=== PATIENT | female | born 1995 ===

== ENCOUNTER → 2020-10-14 14:11 | Outpatient (BNVA) | payer OTHER, SELFPAY | PROVIDERS: Visit Provider Advanced Practice Midwife | DX: Z39.2 Encounter for routine postpartum follow-up (principal); F31.9 Bipolar disorder, unspecified; F25.9 Schizoaffective disorder, unspecified | CPT/HCPCS: 99212 ==

== ENCOUNTER → 2020-11-12 09:13 | Outpatient (BNVA) | payer OTHER, SELFPAY | PROVIDERS: PCP Physician Assistant; Visit Provider Obstetrics & Gynecology | DX: Z76.89 Persons encountering health services in other specified circumstances (principal) ==

== ENCOUNTER → 2020-11-23 09:27 | Outpatient (BNVA) | payer OTHER, SELFPAY | PROVIDERS: PCP Physician Assistant; Visit Provider Obstetrics & Gynecology | DX: Z76.89 Persons encountering health services in other specified circumstances (principal) ==

== ENCOUNTER → 2021-03-02 15:13 | Outpatient (BNVA) | payer OTHER, SELFPAY | PROVIDERS: PCP Physician Assistant; Visit Provider Advanced Practice Midwife ==

== ENCOUNTER → 2022-11-16 15:10 | Outpatient (BNVA) | payer OTHER, SELFPAY | PROVIDERS: PCP Internal Medicine; Visit Provider Advanced Practice Midwife | DX: O09.30 Supervision of pregnancy with insufficient antenatal care, unspecified trimester (principal); N92.6 Irregular menstruation, unspecified; O99.340 Other mental disorders complicating pregnancy, unspecified trimester; F25.9 Schizoaffective disorder, unspecified; F31.9 Bipolar disorder, unspecified; Z3A.00 Weeks of gestation of pregnancy not specified | CPT/HCPCS: 99212 ==

== ENCOUNTER 2022-11-16 17:20 | Outpatient (REF) | payer OTHER, SELFPAY ==
[2022-11-16 17:37] LABS: MANUAL DIFF FLAG NO
[2022-11-16 17:54] LABS: Basophils Percent Auto 0.2 % (0-2); Eosinophils Percent Auto 0.3 % (0-4); Hematocrit 35.8 % (37.0-47.0); Imm Gran Abs Auto 0.03 X10*3/uL (0.00-0.03); Imm Gran Pct Auto 0.3 % (0.0-0.4); Lymphocytes Absolute Auto 2.4 X10*3/uL (1.2-4.9); Lymphocytes Percent Auto 22.8 % (20-40); Mean Corpuscular HGB Conc 33.5 g/dl (31.0-35.0); Mean Corpuscular Hemoglobin 33.1 pg (27.0-33.0); Mean Corpuscular Volume 98.6 fL (80.0-98.0); Mean Platelet Volume 9.8 fL (9.4-12.3); Monocytes Absolute Auto 0.6 X10*3/uL (0.1-1.2); Monocytes Percent Auto 5.9 % (2-11); Neutrophils Absolute Auto 7.4 x10*3/uL (2.0-8.3); Neutrophils Percent Auto 70.5 % (45-73); Platelet Count 230 X10*3/uL (160-400); Red Blood Count 3.63 X10*6/uL (4.20-5.50); Red Cell Distribution Width 12.8 % (11.0-16.0); White Blood Count 10.5 X10*3/uL (4.8-10.8)
[2022-11-16 18:35] LABS: Alanine Aminotransferase 9 U/L (0-31); Albumin Level 3.8 g/dL (3.5-5.0); Alkaline Phosphatase 56 U/L (39-117); Anion Gap 12 (12-20); Aspartate Amino Transferase 15 U/L (5-31); Bilirubin Total 0.4 mg/dL (0.0-1.0); Blood Urea Nitrogen 6 mg/dL (9-16); Calcium 8.8 mg/dL (8.4-10.2); Carbon Dioxide 23 mmol/L (22-29); Chloride 103 mmol/L (96-108); Estimated Glomerular Filt Rate > 60; Glucose Random 88 mg/dL (60-115); Potassium 3.3 mmol/L (3.3-5.1); Sodium 135 mmol/L (135-145); TSH reflex Free T4 0.87 uIU/mL (0.32-4.0); Total Protein 6.7 g/dL (6.5-8.0); Vitamin D 25-OH Total 17.8 ng/mL (>30)
== END 2022-11-16 17:21 | disposition home or self-care (01) ==
LOC: HO.LAB 17:20
PROVIDERS: Visit Provider Nurse Practitioner Family
DX: Z00.00 Encounter for general adult medical examination without abnormal findings (principal)
CPT/HCPCS: 36415; 80053; 82306; 84443; 85025

== ENCOUNTER 2022-11-17 14:06 | Outpatient (REF) | payer OTHER, SELFPAY ==
--- NOTE | ~2022-11-17 | US_ITS ---
EXAMINATION: ULTRASOUND OB LIMITED CLINICAL INFORMATION: For dating. COMPARISON: Ultrasound OB 04/10/2020 TECHNIQUE: Routine transabdominal Limited imaging of pelvis is performed. FINDINGS: There is a single fetus in breech presentation and posterior placenta grade 2. heart rate is 152 bpm. On biometry, Biparietal diameter measures 5.937 corresponding 24 2 weeks, Head circumference measures 23.43 cm corresponding to 25 weeks 4 days, Abdominal circumference measures 20.21 cm corresponding to 24 weeks 6 days, Femoral length measures 4.44 cm corresponding to clinically described, occipital frontal diameter measures 8.6 cm corresponding 26 weeks and 5 days, The composite ultrasound gestational age is 24 weeks and 6 days and LINDSAY of 03/03/2023. The estimated weight is 1 pounds and 10 ounces US/US OB limited IMPRESSION: Single live intrauterine fetus in breech presentation. Ultrasound gestational age is 24 weeks 6 days and LINDSAY of 03/03/2023.
== END 2022-11-17 14:07 | disposition home or self-care (01) ==
LOC: HO.US 14:06
PROVIDERS: PCP Nurse Practitioner Family; Visit Provider Advanced Practice Midwife
DX: O32.1XX0 Maternal care for breech presentation, not applicable or unspecified (principal)
CPT/HCPCS: 76815

== ENCOUNTER → 2022-11-24 11:04 | Outpatient (BNVA) | payer OTHER, SELFPAY | PROVIDERS: PCP Nurse Practitioner Family; Visit Provider Advanced Practice Midwife | DX: O09.32 Supervision of pregnancy with insufficient antenatal care, second trimester (principal); O09.812 Supervision of pregnancy resulting from assisted reproductive technology, second trimester; Z3A.26 26 weeks gestation of pregnancy | CPT/HCPCS: 99212 ==

== ENCOUNTER 2023-11-17 15:25 | Outpatient (AMB) | payer OTHER, SELFPAY ==
--- NOTE | 2023-11-17 15:29 | A.OFFPC_ITS ---
Vital Signs 11/17/23 15:31 Height 5 ft 3 in BP 120/60 Blood Pressure Location Lt brachial Position Sitting Pulse 101 H Pulse Source Pulse Oximeter Pulse Oximetry (%) 96 Oxygen Delivery Method Room Air Oxygen Flow Rate 173 Intake Visit Reasons: Annual Exam Commercial Census Taker Required: No Accompanied by: Self / Same As Patient Allergies No Known Allergies Allergy (Verified 11/17/23 16:59) Medication List - Last Reconciled 11/19/23 by Que Garcia MD cholecalciferol (vitamin D3) 25 mcg PO DAILY PNV,calcium 11-xonw-lrjph acid 27 mg iron- 1 mg ( Vitamins Plus Low Iron) 1 tab PO DAILY ,calc no.[id number] 60 mg iron-1 mg 1 cap PO DAILY 90 days Tobacco use date assessed: 11/16/22 Dental Screening Dental Screen Date: 11/17/23 Did you have a dental visit in the last 12 months?: Yes Did you have a dental problem in the last 6 months where you did not have access to dental care?: No Was dental information given to patient?: Patient has dentist HPI Annual Exam HPI Details Patient comes in today for her annual physical examination States that she currently feels okay She is requesting for a test to be done here to confirm her Relates that she just found out she was a few months ago when she was far along in her and was never aware that she was then and thought that her frequent abdominal bloating symptoms and fatigue were from some other causes Her LMP was sometime in February 2023 so her EDC is roughly estimated to be sometime in the next month or two as she is not clear as to when the actual date of her last period was and she has never really followed up with OB-Probate Paralegal during her current States that she has been seen at [facility] and another place in [place] in the past but does not wish to go back to these places She also has a history of anxiety, bipolar disorder and schizophrenia but she is currently not following up with Psychiatry States that she was seen in the past at [facility] and [facility] in [place] but states that she has not been back to these places in a while now as she felt disrespected by some of the staff working there She presently denies any headaches or dizziness Denies any chest pains, no shortness of breath No nausea/vomiting, no abdominal pain No change in bowel habits noted Denies any acute urinary symptoms She also does not wish to get any blood tests done as she was reportedly told by another doctor in the past that she should not get any blood tests done while she is as it can be harmful to the baby [facility] Medical History (Updated 11/19/23 @ 04:51 by Que Garcia MD) Bipolar 1 disorder Vitamin D deficiency Schizo-affective schizophrenia Depressed Surgical History History of excision of pilonidal cyst (~2014) Family History Sister Migraine Maternal Grandmother Diabetes mellitus Thyroid disease Paternal Grandmother Breast cancer Paternal Grandfather Stomach cancer Social History Housing: Apartment Alcohol intake: current Alcohol intake frequency: holidays/special occasions only Patient Tobacco Use Status: Never used Tobacco e-Cigarette/Vaping Use: Currently Using service: No Current occupational status: employed Gender identity: Female Cognitive needs: No Hearing needs: No Vision needs: No Questionnaire PHQ-9 Over the last 2 weeks, how often have you been bothered by any of the following problems? 1. Little interest or pleasure in doing things: not at all 2. Feeling down, depressed, or hopeless: not at all 3. Trouble falling or staying asleep, or sleeping too much: not at all 4. Feeling tired or having little energy: not at all 5. Poor appetite or overeating: not at all 6. Feeling bad about yourself - or that you are a failure or have let yourself or your family down: not at all 7. Trouble concentrating on things, such as reading the newspaper or watching television: not at all 8. Moving or speaking so slowly that other people could have noticed. Or the opposite - being so fidgety or restless that you have been moving around a lot more than usual: not at all 9. Thoughts that you would be better off or of hurting yourself in some way: not at all Total score: 0 Depression Screening Interpretation: Negative Depression Screening Done: Yes 30880 - PHQ-9 Billing: Yes Source: Developed by Drs. Filippo Worrell, Hany Levy and colleagues, with an educational barbara from [employer]. Thrive Questionnaire Date Thrive assessed: 11/17/23 I am a: Patient What is your living situation today?: I have a steady place to live Within the past 12 months, did the food you bought not last and you didn't have the money to get more?: Never true Within the past 12 months, did you worry whether your food would run out before you got money to buy more?: Never true Do you have trouble paying for medicines?: No Do you have trouble getting transportation to medical appointments?: No Do you have trouble paying your heating and electricity bill?: No Do you have trouble taking care of your child, family member or friend?: No Do you have trouble with day-to-day activities such as bathing, preparing meals, shopping, managing finances, etc.?: No Are you currently unemployed and looking for a job?: No Are you interested in more education?: No Please select the resources that you would like help with: None Currently or been in a relationship where the following occur: no concerns reported AUDIT C Alcohol Use Questionnaire (AUDIT-C) 1. How often do you have a drink containing alcohol?: Never 3. How often do you have six or more drinks on one occasion?: Never Total Score: 0 Score Reviewed/Action Taken: Yes SARAH-7 AMB Questionnaire SARAH-7 Date SARAH - 7 assessed: 11/17/23 Feeling nervous, anxious, or on edge: 0 = Not at all Not being able to stop or control worryin = Not at all Worrying too much about different things: 0 = Not at all Trouble relaxin = Not at all Being so restless that it is hard to sit still: 0 = Not at all Becoming easily annoyed or irritable: 0 = Not at all Feeling afraid as if something awful might happen: 0 = Not at all Total SARAH-7 score (0-4 normal; 5-9 mild; 10-14 moderate; 15-21 severe): 0 Source: Developed by Drs. Filippo Worrell, Elza Valero, Hany Matthews and colleagues, with an educational barbara from [employer]. SARAH-7 Assessment Billing SARAH-7 Assessment Tool: SARAH-7 Assessment 38508 Review of Systems Const Denies chills, Denies fatigue, Denies fever(s), Denies headache(s) and Denies malaise Eyes Denies blurry vision, Denies change in vision, Denies irritation and Denies itchy eyes ENT Denies dysphagia, Denies dizziness, Denies otalgia, Denies headache(s), Denies nasal congestion, Denies neck pain, Denies odynophagia, Denies sinus pain and Denies sore throat Card Denies chest pain, Denies rapid heart rate, Denies irregular heart rhythm, Denies palpitations and Denies dyspnea Resp Denies chest congestion, Denies cough, Denies dyspnea and Denies wheezing GI Denies abdominal pain, Denies bloating, Denies constipation, Denies dysphagia, Denies heartburn, Denies diarrhea, Denies nausea, Denies odynophagia and Denies vomiting Denies hematuria, Denies urinary frequency, Denies dysuria, Denies urinary incontinence and Denies urinary urgency Musc Denies back pain, Denies arthralgias, Denies joint swelling, Denies muscle weakness and Denies neck pain Skin/Breast Denies breast pain, Denies breast mass, Denies change in pigmentation, Denies lesions, Denies rash and Denies unusual bruising Neuro Denies dizziness, Denies headache(s) and Denies paresthesias Psych Denies anxiety and Denies depression Endo Denies fatigue and Denies palpitations Johny/Lymph Denies easy bruising Aller/Immun Denies itchy eyes and Denies wheezing Physical exam (Primary Care) Vital Signs: Last Vital Signs Pulse 101 H 11/17/23 15:31 BP 120/60 11/17/23 15:31 Pulse Ox 96 11/17/23 15:31 Oxygen Delivery Method Room Air 11/17/23 15:31 Oxygen Flow Rate 173 11/17/23 15:31 Tobacco/Smoking Status: Tobacco use Status Tobacco use date assessed 11/16/22 11/17/23 15:35 Patient Tobacco Use Status Never used Tobacco 11/17/23 15:35 e-Cigarette/Vaping Use Currently Using 11/17/23 15:44 Depression Screening Interpretation: Negative Thrive Assessment: Date of Thrive Assessment Date Thrive assessed 11/17/23 11/17/23 15:44 Currently or been in a relationship where the following occur: no concerns reported Const General: no acute distress, alert and awake Orientation/consciousness: patient oriented x3 HENMT Head: Yes normocephalic and Yes atraumatic Ears: external ears normal, TM's normal bilaterally and EAC's normal General nose exam: No nasal discharge present Face and sinus: Yes normal facial exam and Yes sinuses nontender Teeth and gingiva: dentition normal Throat: Yes posterior oropharynx normal and Yes tonsils normal (no TP congestion) Eyes Eyelids: Yes eyelids normal Conjunctivae: conjunctivae normal Pupils: Equal, round and reactive pupils present EOM: EOMs intact bilaterally Neck Neck: Yes no lymphadenopathy and Yes supple Thyroid: Thyroid normal Resp Auscultation: clear to auscultation bilaterally, no rales and no wheezes Cardio Rate: regular rate Rhythm: regular rhythm Heart sounds: no murmurs GI Inspection: Yes distended (globular abdomen due to her ) Palpation (GI): Soft to palpation, nontender and No hepatosplenomegaly present Auscultation: normal bowel sounds General: Yes no CVA tenderness Back/Spine/Pelvis Back: no CVA tenderness Thoracic/Lumbar Spine: thoracic and lumbar spine normal to inspection Skin Lesions: no lesions Rashes: no rashes Neuro General: patient oriented x3, moves all extremities, no focal motor deficits and CN's II-XI intact bilaterally Cranial nerves: Yes Equal, round and reactive pupils present Cognition (Neuro): normal cognition Gait exam (Neuro): Normal gait present Extrem General: Yes no clubbing, cyanosis or edema Results AMB Test Urine AMB Test Urine Positive Last Edit by GENTRY Rust on 11/17/23 16:56 Results Reviewed Results Reviewed: Laboratory Last Values [facility] Clinic Positive 11/17/23 16:55 Assessment and Plan Assessment & Plan (1) Annual physical exam: Code(s): Z00.00 - Encounter for general adult medical examination without abnormal findings Plan: Patient declined to go for any routine labs, as she was reportedly told by another doctor in the past that she should not get any blood tests done while she is as it can be harmful to the baby (2) Positive test: Code(s): Z32.01 - Encounter for test, result positive Plan: Patient is advised that her test done here in the office today is positive Her LMP was reportedly sometime February 2023 so her calculated EDC would be sometime in November 2023 but patient is advised that this is a rough estimate and as she is unclear as to when her LMP actually is, this may be off by at a couple of months or so Is advised that the ultrasound would give us a much more definite idea of her baby's AOG once it is done - US ordered She declines going for any labs despite explaining to her that it would at least let us know if she is anemic or if she is having any problems with her blood sugar or other issues and despite reassuring her that routine labs should in no way affect her baby She also reportedly declined to be weighed today Will start her for now on vitamins with Folic acid and iron supplements QD Will also refer her to OB-Probate Paralegal for care (3) Bipolar 1 disorder: Code(s): F31.9 - Bipolar disorder, unspecified Plan: She has been seen by psychiatrist at [facility] in the past and has apparently been prescribed Risperidone, Haldol, Cogentin, Depakote and Tegretol at some point but she has reportedly stopped seeing psychiatry and has not been back to see them in at least a couple of years now and has not been on any medications for her psychiatric issues since as she feels that her psychiatrists just want to keep giving her more meds and keep her drugged up She has indicated during her past visit that she is under her own care and felt that she is well within her right not to see psychiatry as she does not trust them and declined offer to refer her to psychiatry or to mental health therapists Plan Follow up in 6 months Orders: Orders AMB HCG Urine Test 11/17/23 Z32.01 - Encounter for test, result positive US OB /maternal detail 11/17/23 Z32.01 - Encounter for test, result positive Referrals [facility] Referral Z32.01 - Encounter for test, result positive Medications: New ,calc no.89-[id number]-[id number] 60 mg iron-1 mg 1 cap PO DAILY 90 days 90 caps 1RF Coding Level of Care Code Est Pt Prev Care 18-39y(09827) Diagnoses Annual physical exam Z00.00 Positive test Z32.01 Bipolar 1 disorder F31.9 Additional Codes SARAH-7 Assessment Billing - SARAH-7 Assessment Tool: SARAH-7 Assessment 49083 ([id number])
[2023-11-17 15:31] VITALS: BP 120/60; PULSE 101; O2SAT 96
== END 2023-11-17 17:19 | disposition home or self-care (01) ==
PROVIDERS: Visit Provider Internal Medicine
DX: Z00.00 Encounter for general adult medical examination without abnormal findings (principal); Z32.01 Encounter for pregnancy test, result positive; F31.9 Bipolar disorder, unspecified; E55.9 Vitamin D deficiency, unspecified
CPT/HCPCS: 81025; 99395

== ENCOUNTER 2024-03-12 15:57 | Outpatient (AMB) | payer OTHER, SELFPAY ==
[2024-03-12 16:03] VITALS: BP 100/60; PULSE 112; O2SAT 97; BMI 32.2
--- NOTE | 2024-03-12 16:03 | AM.OFFWIN_ITS ---
Intake Vital Signs 03/12/24 16:03 Height 5 ft 3 in Weight 182 lb BMI 32.2 BP 100/60 Blood Pressure Location Rt brachial Position Sitting Pulse 112 H Pulse Source Pulse Oximeter Pulse Oximetry (%) 97 Oxygen Delivery Method Room Air Intake Visit Reasons: EP RT Eye discomfort Intake Note: Pt is here today for rt eye discomfort Patient Tobacco Use Status: Never used Tobacco Allergies No Known Allergies Allergy (Verified 03/12/24 16:03) HPI HPI Comments History of Present Illness Details 29 y/o female c/o bilateral eye discomfo rt after wearing her contacts for 3 day PFSH Medical History (Updated 03/12/24 @ 16:12 by ERIN Stroud) Bipolar 1 disorder Vitamin D deficiency Schizo-affective schizophrenia Depressed Surgical History History of excision of pilonidal cyst (~2014) Family History Sister Migraine Maternal Grandmother Diabetes mellitus Thyroid disease Paternal Grandmother Breast cancer Paternal Grandfather Stomach cancer Social History Housing: Apartment Alcohol intake: current Alcohol intake frequency: holidays/special occasions only Patient Tobacco Use Status: Never used Tobacco e-Cigarette/Vaping Use: Currently Using service: No Current occupational status: employed Gender identity: Female Cognitive needs: No Hearing needs: No Vision needs: No Review of Systems Const All systems reviewed & are unremarkable except as noted in HPI and below Physical Exam Vital Signs: Last Vital Signs Pulse 112 H 03/12/24 16:03 BP 100/60 03/12/24 16:03 Pulse Ox 97 03/12/24 16:03 Oxygen Delivery Method Room Air 03/12/24 16:03 BMI result Body Mass Index 32.2 Const General: in distress HEENT Head: Yes normal to inspection Ears: hearing grossly normal bilaterally General nose exam: Normal external nose present Eyes Conjunctivae: conjunctival abnormal (injection with discharge) right and left Assessment & Plan Assessment & Plan (1) Conjunctivitis: Code(s): H10.9 - Unspecified conjunctivitis Plan: The patient was still to discard all of her contact containers. Avoid contacts for 3-4 weeks Plan See plan Medications: New erythromycin 1 appl ophthalmic (eye) TID 3.5 grams 0RF Coding Level of Care Code Est Pt Level 3 (82593) Diagnoses Conjunctivitis H10.9
== END 2024-03-12 17:19 | disposition home or self-care (01) ==
PROVIDERS: PCP Internal Medicine; Visit Provider Physician Assistant Medical
DX: H10.9 Unspecified conjunctivitis (principal)
CPT/HCPCS: 99213

== ENCOUNTER 2024-05-22 12:30 | Outpatient (AMB) | payer OTHER, SELFPAY ==
[2024-05-22 12:32] VITALS: BP 90/58; PULSE 79; O2SAT 97; BMI 28.3
--- NOTE | 2024-05-22 12:32 | MHC.PC.OV ---
Vital Signs 05/22/24 12:32 Height 5 ft 3 in Weight 160 lb 0.1 oz BMI 28.3 BP 90/58 L Blood Pressure Location Lt brachial Position Sitting Pulse 79 Pulse Source Pulse Oximeter Pulse Oximetry (%) 97 Oxygen Delivery Method Room Air Intake Visit Reasons: follow up Intake Note: Patient is here to follow up. Reading Teacher Required: No Allergies No Known Allergies Allergy (Verified 05/22/24 12:55) Medication List - Last Reconciled 05/22/24 by Que Garcia MD cholecalciferol (vitamin D3) 25 mcg PO DAILY etonogestrel (Nexplanon) subdermal Tobacco use date assessed: 05/22/24 Dental Screening Dental Screen Date: 05/22/24 HPI follow up HPI Details Patient comes in today for her follow up visit States that she had her baby in January 2024 at [facility] - reports that her and delivery went well and that she had no issues at all during her States that she was seen by psychiatry at [facility] while she was and was taken off her Haldol at the time She is currently not taking anything for her bipolar disorder and is only taking vitamins that she gets from the store to help her stay healthy She is looking to start back on some Rx for her bipolar disorder but is requesting to be started on Risperdal instead as she supposedly recalls feeling better when she was on Risperdal in the past She is not sure / does not know supposedly why she was switched from Risperdal over to Haldol by her previous psychiatrist States that she feels okay otherwise She denies any headaches or dizziness Denies any chest pains, no SOB No nausea/vomiting, no abdominal pain No change in bowel habits noted She is also requesting for something to help her breasts get bigger - is hoping that we can just prescribe her some medications for that reason - have advised patient that in most cases, breast enlargements involve implants and surgical means rather than prescriptions as there are currently no approved or safe prescription options for breast enlargement/enhancement [facility] Medical History (Updated 05/22/24 @ 13:26 by Que Garcia MD) Overweight (BMI 25.0-29.9) Bipolar 1 disorder Vitamin D deficiency Schizo-affective schizophrenia Depressed Surgical History History of excision of pilonidal cyst (~2014) Family History Sister Migraine Maternal Grandmother Diabetes mellitus Thyroid disease Paternal Grandmother Breast cancer Paternal Grandfather Stomach cancer Social History Housing: Apartment Alcohol intake: current Alcohol intake frequency: holidays/special occasions only Patient Tobacco Use Status: Never used Tobacco e-Cigarette/Vaping Use: Currently Using service: No Current occupational status: employed Gender identity: Female Cognitive needs: No Hearing needs: No Vision needs: No Questionnaire PHQ-9 Over the last 2 weeks, how often have you been bothered by any of the following problems? 1. Little interest or pleasure in doing things: not at all 2. Feeling down, depressed, or hopeless: not at all 3. Trouble falling or staying asleep, or sleeping too much: not at all 4. Feeling tired or having little energy: not at all 5. Poor appetite or overeating: not at all 6. Feeling bad about yourself - or that you are a failure or have let yourself or your family down: not at all 7. Trouble concentrating on things, such as reading the newspaper or watching television: not at all 8. Moving or speaking so slowly that other people could have noticed. Or the opposite - being so fidgety or restless that you have been moving around a lot more than usual: not at all 9. Thoughts that you would be better off or of hurting yourself in some way: not at all Total score: 0 Depression Screening Interpretation: Negative Depression Screening Done: Yes 39070 - PHQ-9 Billing: Yes Source: Developed by Drs. Filippo Worrell, Elza Valero, Hany Matthews and colleagues, with an educational barbara from [employer]. Thrive Questionnaire Date Thrive assessed: 05/22/24 I am a: Patient What is your living situation today?: I have a steady place to live Within the past 12 months, did the food you bought not last and you didn't have the money to get more?: Never true Within the past 12 months, did you worry whether your food would run out before you got money to buy more?: Never true Do you have trouble paying for medicines?: No Do you have trouble getting transportation to medical appointments?: No Do you have trouble paying your heating and electricity bill?: No Do you have trouble taking care of your child, family member or friend?: No Do you have trouble with day-to-day activities such as bathing, preparing meals, shopping, managing finances, etc.?: No Are you currently unemployed and looking for a job?: No Are you interested in more education?: No Please select the resources that you would like help with: None Currently or been in a relationship where the following occur: No concerns reported THRIVE Score: 0 AUDIT C Alcohol Use Questionnaire (AUDIT-C) 1. How often do you have a drink containing alcohol?: Never 3. How often do you have six or more drinks on one occasion?: Never Total Score: 0 Score Reviewed/Action Taken: Yes SARAH-7 AMB Questionnaire SARAH-7 Date SARAH - 7 assessed: 05/22/24 Feeling nervous, anxious, or on edge: 0 = Not at all Not being able to stop or control worryin = Not at all Worrying too much about different things: 0 = Not at all Trouble relaxin = Not at all Being so restless that it is hard to sit still: 0 = Not at all Becoming easily annoyed or irritable: 0 = Not at all Feeling afraid as if something awful might happen: 0 = Not at all Total SARAH-7 score (0-4 normal; 5-9 mild; 10-14 moderate; 15-21 severe): 0 Source: Developed by Drs. Filippo Worrell, Elza Valero, Hany Matthews and colleagues, with an educational barbara from [employer]. SARAH-7 Assessment Billing SARAH-7 Assessment Tool: SARAH-7 Assessment 48307 Review of Systems Const Denies chills, Denies fatigue, Denies fever(s) and Denies headache(s) ENT Denies dysphagia, Denies dizziness, Denies otalgia, Denies headache(s), Denies neck pain, Denies odynophagia and Denies sore throat Card Denies chest pain, Denies palpitations and Denies dyspnea Resp Denies cough and Denies dyspnea GI Denies abdominal pain, Denies constipation, Denies dysphagia, Denies heartburn, Denies diarrhea, Denies nausea, Denies odynophagia and Denies vomiting Denies difficulty voiding, Denies nocturia, Denies dysuria and Denies urinary urgency Musc Denies back pain and Denies neck pain Skin/Breast Denies breast pain and Denies rash Neuro Denies dizziness and Denies headache(s) Endo Denies fatigue and Denies palpitations Physical exam (Primary Care) Vital Signs: Last Vital Signs Pulse 79 05/22/24 12:32 BP 90/58 L 05/22/24 12:32 Pulse Ox 97 05/22/24 12:32 Oxygen Delivery Method Room Air 05/22/24 12:32 BMI result Body Mass Index 28.3 Tobacco/Smoking Status: Tobacco use Status Tobacco use date assessed 05/22/24 05/22/24 12:33 Patient Tobacco Use Status Never used Tobacco 05/22/24 12:33 e-Cigarette/Vaping Use Currently Using 05/22/24 12:33 PHQ-9: PHQ-9 Score PHQ-9: Total score 0 05/22/24 12:33 Depression Screening Interpretation: Negative Thrive Assessment: Date of Thrive Assessment Date Thrive assessed 05/22/24 05/22/24 12:33 Currently or been in a relationship where the following occur: No concerns reported Const General: no acute distress and alert HENMT Throat: Yes posterior oropharynx normal and Yes tonsils normal (no TP congestion) Neck Neck: Yes no lymphadenopathy and Yes supple Thyroid: Thyroid normal Resp Auscultation: clear to auscultation bilaterally, no rales and no wheezes Cardio Rate: regular rate Rhythm: regular rhythm Heart sounds: no murmurs GI Palpation (GI): Soft to palpation and nontender Auscultation: normal bowel sounds General: Yes no CVA tenderness Back/Spine/Pelvis Back: no CVA tenderness Thoracic/Lumbar Spine: thoracic and lumbar spine normal to inspection Skin General skin exam: no rashes or lesions noted Extrem General: Yes no clubbing, cyanosis or edema Assessment and Plan Assessment & Plan (1) Bipolar 1 disorder: Code(s): F31.9 - Bipolar disorder, unspecified Plan: She has been seen by psychiatrist at [facility] in the past and has apparently been prescribed Risperidone, Haldol, Cogentin, Depakote and Tegretol at some point but she has reportedly stopped seeing psychiatry and has not been back to see them in a silvia years now and has not been on any medications for her psychiatric issues since States that she feels that her psychiatrists just want to keep giving her more meds and keep her drugged up She has indicated during her past visit that she is under her own care and felt that she is well within her right not to see psychiatry as she does not trust them and declined offer to refer her to psychiatry or to mental health therapists She is currently requesting to be started back on her meds - relates that she was last on Haldol but wants to switch over to Risperdal instead as she recalls feeling better while she was on Risperdal As her psychiatric issues appear to be quite complicated, I have advised her that I would prefer she see a psychiatrist and have them determine which Rx to best start her on more appropriately I do not really know why she was supposedly switched over to Haldol from Rsiperdal and therefore do not feel comfortable just starting her back on something just because she tells me she felt better while on that Rx Will refer her to psychiatry for further evaluation and management - patient now agrees to this referral (2) Encounter for cosmetic procedure: Code(s): Z41.1 - Encounter for cosmetic surgery Plan: Patient is currently requesting for a referral for breast enhancement Was initially asking for some Rx to help with this but have explained to her that there are no approved or safe Rx option at this time for the reason for her request and that breast enhancement options at this time are all surgical procedures Will go ahead and refer her to plastic surgery for consultation but have advised patient that this will still require approval from her health insurance and it may not be approved unless it is for a documented health or medical issues rather than simply cosmetic reasons (3) Overweight (BMI 25.0-29.9): Code(s): E66.3 - Overweight Plan: Reinforced diet/exercise as tolerated/lose weight Plan To return in 6 months for her next annual physical examination Orders: Referrals Psychiatry Outpatient Consultation Service F31.9 - Bipolar disorder, unspecified Plastic Surgery Referral Z41.1 - Encounter for cosmetic surgery, Z71.9 - Counseling, unspecified Coding Level of Care Code Est Pt Level 3 (63900) Diagnoses Bipolar 1 disorder F31.9 Encounter for cosmetic procedure Z41.1 Overweight (BMI 25.0-29.9) E66.3 Additional Codes SARAH-7 Assessment Billing - SARAH-7 Assessment Tool: SARAH-7 Assessment 78627 ([id number])
== END 2024-05-22 13:08 | disposition home or self-care (01) ==
PROVIDERS: PCP Internal Medicine; Visit Provider Internal Medicine
DX: F31.9 Bipolar disorder, unspecified (principal); Z41.1 Encounter for cosmetic surgery; E66.3 Overweight
CPT/HCPCS: 99213

== ENCOUNTER 2024-06-03 14:53 | Outpatient (AMB) | payer OTHER, SELFPAY ==
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
== END 2024-06-03 15:37 | disposition home or self-care (01) ==
LOC: HO.HOP 14:53
PROVIDERS: PCP Internal Medicine; Visit Provider Clinical Nurse Specialist Psychiatric/Mental Health
DX: F25.0 Schizoaffective disorder, bipolar type (principal)
CPT/HCPCS: 90792

== ENCOUNTER → 2024-06-03 14:53 | Outpatient (BNVA) | payer OTHER, SELFPAY | PROVIDERS: PCP Internal Medicine; Visit Provider Clinical Nurse Specialist Psychiatric/Mental Health | DX: F25.0 Schizoaffective disorder, bipolar type (principal) | CPT/HCPCS: 90792 ==

== ENCOUNTER 2024-06-14 12:38 | Outpatient (AMB) | payer OTHER, SELFPAY ==
--- NOTE | 2024-06-14 13:11 | MHC.OFFVISPS ---
Intake Intake Visit Reasons: F/U consultation Control Officer Manager Required: No Allergies No Known Allergies Allergy (Verified 05/22/24 12:55) Medication List - Last Reconciled 06/14/24 by Ember Velázquez APRN cholecalciferol (vitamin D3) 25 mcg PO DAILY etonogestrel (Nexplanon) subdermal hydroxyzine HCl 25 mg PO BID PRN risperidone (Risperdal) 2 mg (2 x 1 mg) PO BEDTIME HPI- Psychiatric Chief Complaint: F/U consultation HPI Narrative: pt reports sheis taking the risperdal and has no side effects; she tells me she took risperdal in the hospital and it helped. She is living in a studio apartment which the father of her baby is providing; her children are in the custody of her sisters; she feels sad about that and has trouble contacting her sisters to talk to them; but she also is trying to take care of herself; she continues to express paranoid and nonsensical ideas at times but also can be coherent and logical. she is eating well. she is staying hydrated; she denies using any alcohol or drugs; she worries about unclean people and people with ulterior motives. she says she talked to her therapist this week and they wnt to know if she is going to see a psychiatrist at [facility] in future; I explained to her that she would see [facility] psychiatrist but there is a wait list. and that I will see her until she can be seen there. she denies SI ro HI. Past Psychiatric History: inpt at [facility] TIMES; reports she has therapist at [facility] Subjective Subjective Subjective Medication Compliance: Yes Side effects from medications: No Review of Systems Medical Review of Systems: unchanged Mental Status Exam Mental Status Exam Patient Appearance: Well Grooomed and Appropriate Patient Orientation: Person, Place, Time and Situation Level of Consciousness: Awake and Alert Patient Behavior: Appropriate and Good Eye Contact Mood Description: Anxious Affect Description: Anxious Patient Cognition Impaired: Yes Ability to Follow Directions: Fair Speech Pattern: Clear and Rambling Memory Description: Intact Delusions: Paranoid Ideation Thought Process: Illogical, Distracted and Word Salad Thought Content: positive for Preoccupation (cleanliness, germs, contaminants), positive for Loose Associations and positive for Neologisms Judgement: Fair Assessment and Plan Assessment & Plan (1) Schizoaffective disorder, bipolar type: Status: Acute Code(s): F25.0 - Schizoaffective disorder, bipolar type Plan pt is psychotic and illogical at times but is able to be clear internmittently and denies SI or HI; she is eating and drinking fluids; she has appropriate snf and is making appointments . I am unable to section 12 her at this time and recommend continued treatment; I have talked to her about going to ER or calling 911 if she feels worse or has unmanageable symptoms; i asked if she knows how to get to the ER or call crisis and and she does know how; she does not feel she needs that right now; she acknowledges she has a bipolar disorder and is taking medications. increase risperdal to 2mg daily at bedtime Medications: Changed From risperidone (Risperdal) 1 mg PO BEDTIME 30 tabs 0RF To risperidone (Risperdal) 2 mg (2 x 1 mg) PO BEDTIME 30 tabs 0RF Counseling and coordination of Care Pt. Self Management counseling: Nutrition education and improvement, Sleep hygiene and General coping skills Medication management counseling: Effectiveness, Side effects, Dosing range, Duration, Drug interaction and Adherence Diagnosis and Prognosis Counseling: Accuracy of diagnosis, Prognosis over time, Impact of diagnosis on life functions and Adequacy of current interventions Details: I spent 45 minutes reviewing the record, seeing the patient and documenting in the medical record. Counseling provided to the patient/caregiver as outlined below. Addressed patient/caregiver concerns regarding current medication regime including effective adherence. Addressed patient/caregiver concerns regarding diagnosis and prognosis including accuracy of diagnosis, prognosis over time, impact of diagnosis. Addressed patient/caregiver concerns regarding impact of recent stressors. [facility] Medical History (Updated 06/03/24 @ 16:12 by Ember Velázquez APRN) Schizo-affective schizophrenia Overweight (BMI 25.0-29.9) Bipolar 1 disorder Vitamin D deficiency Depressed Surgical History History of excision of pilonidal cyst (~2014) Family History Sister Migraine Maternal Grandmother Diabetes mellitus Thyroid disease Paternal Grandmother Breast cancer Paternal Grandfather Stomach cancer Social History Housing: Apartment Alcohol intake: current Alcohol intake frequency: holidays/special occasions only Patient Tobacco Use Status: Never used Tobacco e-Cigarette/Vaping Use: Currently Using service: No Current occupational status: employed Gender identity: Female Cognitive needs: No Hearing needs: No Vision needs: No Social History: lives with mother and baby Substance History: denies Trauma History: yes Coding Level of Care Code Est Pt Level 5 (92991) Diagnoses Schizoaffective disorder, bipolar type F25.0
== END 2024-06-14 13:24 | disposition home or self-care (01) ==
LOC: HO.HOP 12:38
PROVIDERS: PCP Internal Medicine; Visit Provider Clinical Nurse Specialist Psychiatric/Mental Health
DX: F25.0 Schizoaffective disorder, bipolar type (principal)
CPT/HCPCS: 99215

== ENCOUNTER → 2024-06-14 12:38 | Outpatient (BNVA) | payer OTHER, SELFPAY | PROVIDERS: PCP Internal Medicine; Visit Provider Clinical Nurse Specialist Psychiatric/Mental Health | DX: F25.0 Schizoaffective disorder, bipolar type (principal) | CPT/HCPCS: 99212 ==

== ENCOUNTER 2024-12-05 12:31 | Outpatient (AMB) | payer OTHER, SELFPAY ==
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
== END 2024-12-05 12:51 | disposition home or self-care (01) ==
LOC: HO.HOP 12:31
PROVIDERS: PCP Internal Medicine; Visit Provider Clinical Nurse Specialist Psychiatric/Mental Health
DX: F25.0 Schizoaffective disorder, bipolar type (principal)
CPT/HCPCS: 99215

== ENCOUNTER → 2024-12-05 12:31 | Outpatient (BNVA) | payer OTHER, SELFPAY | PROVIDERS: PCP Internal Medicine; Visit Provider Clinical Nurse Specialist Psychiatric/Mental Health | DX: F25.0 Schizoaffective disorder, bipolar type (principal) | CPT/HCPCS: 99212 ==

== ENCOUNTER 2025-01-10 13:06 | Outpatient (AMB) | payer OTHER, SELFPAY ==
--- NOTE | 2025-01-10 13:28 | A.OFFPSYCH_ITS ---
Intake Intake Visit Reasons: follow up consult Enterostomal Therapy Nurse Required: No Allergies No Known Allergies Allergy (Verified 05/22/24 12:55) Medication List - Last Reconciled 01/10/25 by Ember Velázquez APRN cholecalciferol (vitamin D3) 25 mcg PO DAILY etonogestrel (Nexplanon) subdermal haloperidol 5 mg PO BID PRN lithium carbonate ER 450 mg PO BID 15 days risperidone 3 mg PO BEDTIME HPI- Psychiatric Chief Complaint: follow up consult HPI Narrative: pt showed for appointment on time; she is neatly dressed and well groomed; appropraitely dressed for season and weather; she is polite and cooperative; at times her speach is illogical and full of word salad . She strings words together at itmes that are not logica, especially when she starts to talk about past trauma. In betweeen this word salad she tell me she is taking her medications consistently; She is able to name medications, doses and times she takes. I asked her if someone reminded her about the appointment today or if she remembered and came on her own, she said the hospital reminder by text was very helpful and that was all she needed for reminder. Her PHQ9= 0 Her GAD7= 5. She reports med compliance ; she denies side effects. she reports staying with her father right now and that it is a safe situation. She denies SI or HI. Past Psychiatric History: [place] inpatient Nov 2024; inpt at [facility] 4+ TIMES; reports she has therapist at [facility] Subjective Subjective Subjective Medication Compliance: Yes Side effects from medications: No Review of Systems Medical Review of Systems: unchanged Mental Status Exam Mental Status Exam Patient Appearance: Well Grooomed and Appropriate Patient Orientation: Person, Place, Time and Situation Level of Consciousness: Awake, Appropriate and Alert Patient Behavior: Appropriate and Cooperative Mood Description: Anxious and Sad Affect Description: Anxious and Sad Patient Cognition Impaired: No Ability to Follow Directions: Good Speech Pattern: Difficulty Finding Words (word substitution), Spontaneous Speech, Coherent (off and on) and Rambling (off and on ) Hallucinations: None Delusions: Ideas of Reference and Bizarre Thought Process: Distracted and Word Salad Thought Content: positive for Circumstantial, positive for Perseveration, positive for Preoccupation and positive for Loose Associations Judgement: Fair Judgement and Insight: fair for basic ADLs and basic needs; poor for more complex issues and perspective taking Assessment and Plan Assessment & Plan (1) Post traumatic stress disorder: Status: Acute Code(s): F43.10 - Post-traumatic stress disorder, unspecified (2) Schizoaffective disorder, bipolar type: Status: Acute Code(s): F25.0 - Schizoaffective disorder, bipolar type Medications: New docusate sodium (Colace) 100 mg PO DAILY 30 caps 2RF hydroxyzine HCl 25 mg PO BID PRN 30 tabs 1RF anxiety Changed From lithium carbonate ER 450 mg PO BID 15 days 30 tabs 1RF To lithium carbonate ER 450 mg PO BID 60 tabs 1RF 30 days Refilled cholecalciferol (vitamin D3) 25 mcg PO DAILY 90 tabs 1RF R79.89 - Other specified abnormal findings of blood chemistry haloperidol 5 mg PO BID PRN 30 tabs 1RF agitation risperidone 3 mg PO BEDTIME 30 tabs 1RF Counseling and coordination of Care Pt. Self Management counseling: Maintenance-social rhythm, Mod caffeine/ETOH intake, Nutrition education and improvement, Sleep hygiene, General coping skills and Problem solving Medication management counseling: Effectiveness, Side effects, Dosing range, Duration, Drug interaction and Adherence Diagnosis and Prognosis Counseling: Accuracy of diagnosis, Prognosis over time, Impact of diagnosis on life functions, Impact of family relationship, Problem atic behaviors secondary to diagnosis and Adequacy of current interventions Details: I spent 40 minutes reviewing the record, seeing the patient and documenting in the medical record. Counseling provided to the patient/caregiver as outlined below. Addressed patient/caregiver concerns regarding current medication regime including effective adherence. Addressed patient/caregiver concerns regarding diagnosis and prognosis including accuracy of diagnosis, prognosis over time, impact of diagnosis. Addressed patient/caregiver concerns regarding impact of recent stressors. [facility] Medical History (Updated 02/04/25 @ 09:59 by Ember Velázquez APRN) Overweight (BMI 25.0-29.9) Vitamin D deficiency Depressed Surgical History History of excision of pilonidal cyst (~2014) Family History Sister Migraine Maternal Grandmother Diabetes mellitus Thyroid disease Paternal Grandmother Breast cancer Paternal Grandfather Stomach cancer Social History Housing: Apartment Alcohol intake: current Alcohol intake frequency: holidays/special occasions only Patient Tobacco Use Status: Never used Tobacco e-Cigarette/Vaping Use: Currently Using service: No Current occupational status: employed Gender identity: Female Cognitive needs: No Hearing needs: No Vision needs: No Social History: living temporarily with father; mother has custody of her children Substance History: denies Trauma History: yes Coding Level of Care Code Est Pt Level 4 (03360) Diagnoses Post traumatic stress disorder F43.10 Schizoaffective disorder, bipolar type F25.0
== END 2025-01-10 14:09 | disposition home or self-care (01) ==
LOC: HO.HOP 13:06
PROVIDERS: PCP Internal Medicine; Visit Provider Clinical Nurse Specialist Psychiatric/Mental Health
DX: F43.10 Post-traumatic stress disorder, unspecified (principal); F25.0 Schizoaffective disorder, bipolar type
CPT/HCPCS: 99214

== ENCOUNTER → 2025-01-10 13:06 | Outpatient (BNVA) | payer OTHER, SELFPAY | PROVIDERS: PCP Internal Medicine; Visit Provider Clinical Nurse Specialist Psychiatric/Mental Health | DX: F43.10 Post-traumatic stress disorder, unspecified (principal); F25.0 Schizoaffective disorder, bipolar type; Z71.89 Other specified counseling | CPT/HCPCS: 99212 ==

== ENCOUNTER 2025-02-03 15:08 | Outpatient (AMB) | payer OTHER, SELFPAY ==
--- NOTE | 2025-02-03 12:51 | MHC.OFFVISPS ---
Intake Intake Visit Reasons: follow up consult Group Art Supervisor Required: No Allergies No Known Allergies Allergy (Verified 05/22/24 12:55) Medication List - Last Reconciled 02/03/25 by Ember Velázquez APRN cholecalciferol (vitamin D3) 25 mcg PO DAILY docusate sodium (Colace) 100 mg PO DAILY etonogestrel (Nexplanon) subdermal haloperidol 5 mg PO BID PRN hydroxyzine HCl 25 mg PO BID PRN lithium carbonate ER 450 mg PO BID 30 days risperidone 3 mg PO BEDTIME HPI- Psychiatric Chief Complaint: follow up consult HPI Narrative: Pt reports improvement. Her PHQ9 is 2 Her GAD7= 13. she is anxious. she is staying with a friend currently because she had a falling out with her father. she says the place she is staying is safe. currently no one is mistreating her. she is consistently taking the lithium and the risperdal. she takes the haldol when she works. she is working at a market. she still is overwhelmed with trauma memories and intrusive thoughts at times. she is eating and staying hydrated; her hygiene and grooming good. she knew her medications and knew the schedule of taking it. No SI NO HI. Past Psychiatric History: [place] inpatient Nov 2024; inpt at [facility] 4+ TIMES; reports she has therapist at [facility] Subjective Subjective Subjective Medication Compliance: Yes Side effects from medications: No Review of Systems Medical Review of Systems: unchanged Mental Status Exam Mental Status Exam Patient Appearance: Well Grooomed and Appropriate Patient Orientation: Person, Place, Time and Situation Level of Consciousness: Awake, Appropriate and Alert Patient Behavior: Appropriate, Cooperative, Anxious and Good Eye Contact Mood Description: Appropriate, Anxious, Sad and Nervous Affect Description: Anxious, Sad and Nervous Patient Cognition Impaired: Yes Ability to Follow Directions: Good Speech Pattern: Clear, Perseverating, Rambling and Excessive Hallucinations: None Delusions: Bizarre (ex.belief that certain chips at the market are bad) Perceptual Disturbances: Depersonalization and Derealization Thought Process: Incoherent (at times ), Goal Oriented (intermittently able to be goal oriented and clear) and Word Salad (at times ) Thought Content: positive for Flight of Ideas, positive for Loose Associations, positive for Tangential, positive for Disorganized and positive for Logical (intermittently able to be logical) Judgement: Fair Judgement and Insight: fair to poor insight and judgement; knows she needs to take medications and knows she feels better with the medications; able to know she needs haldol at work; has trouble assessing interpersonal situations/people Assessment and Plan Assessment & Plan (1) Schizoaffective disorder, bipolar type: Status: Acute Code(s): F25.0 - Schizoaffective disorder, bipolar type (2) Post traumatic stress disorder: Status: Acute Code(s): F43.10 - Post-traumatic stress disorder, unspecified Plan continue medications per below; blood work on on first floor hospital return in 1 month for follow up Medications: Refilled lithium carbonate ER 450 mg PO BID 60 tabs 1RF 30 days hydroxyzine HCl 25 mg PO BID PRN 30 tabs 1RF anxiety risperidone 3 mg PO BEDTIME 30 tabs 1RF haloperidol 5 mg PO BID PRN 30 tabs 1RF agitation Counseling and coordination of Care Pt. Self Management counseling: Mod caffeine/ETOH intake, Nutrition education and improvement, General coping skills and Problem solving Medication management counseling: Effectiveness, Side effects, Dosing range, Duration, Drug interaction and Adherence Diagnosis and Prognosis Counseling: Accuracy of diagnosis, Prognosis over time, Impact of diagnosis on life functions, Impact of family relationship, Problematic behaviors secondary to diagnosis and Adequacy of current interventions Details: I spent [] minutes reviewing the record, seeing the patient and documenting in the medical record. Counseling provided to the patient/caregiver as outlined below. Addressed patient/caregiver concerns regarding current medication regime including effective adherence. Addressed patient/caregiver concerns regarding diagnosis and prognosis including accuracy of diagnosis, prognosis over time, impact of diagnosis. Addressed patient/caregiver concerns regarding impact of recent stressors. [facility] Medical History (Updated 02/04/25 @ 09:59 by Ember Velázquez APRN) Overweight (BMI 25.0-29.9) Vitamin D deficiency Depressed Surgical History History of excision of pilonidal cyst (~2014) Family History Sister Migraine Maternal Grandmother Diabetes mellitus Thyroid disease Paternal Grandmother Breast cancer Paternal Grandfather Stomach cancer Social History Housing: Apartment Alcohol intake: current Alcohol intake frequency: holidays/special occasions only Patient Tobacco Use Status: Never used Tobacco e-Cigarette/Vaping Use: Currently Using service: No Current occupational status: employed Gender identity: Female Cognitive needs: No Hearing needs: No Vision needs: No Social History: lives with BF; mother has custody of her children Substance History: denies Trauma History: yes Coding Level of Care Code Est Pt Level 4 (27234) Diagnoses Schizoaffective disorder, bipolar type F25.0 Post traumatic stress disorder F43.10
== END 2025-02-03 15:09 | disposition home or self-care (01) ==
LOC: HO.HOP 15:08
PROVIDERS: PCP Internal Medicine; Visit Provider Clinical Nurse Specialist Psychiatric/Mental Health
DX: F25.0 Schizoaffective disorder, bipolar type (principal); F43.10 Post-traumatic stress disorder, unspecified
CPT/HCPCS: 99214

== ENCOUNTER → 2025-02-03 15:08 | Outpatient (BNVA) | payer OTHER, SELFPAY | PROVIDERS: PCP Internal Medicine; Visit Provider Clinical Nurse Specialist Psychiatric/Mental Health | DX: F25.0 Schizoaffective disorder, bipolar type (principal); F43.10 Post-traumatic stress disorder, unspecified | CPT/HCPCS: 99212 ==

== ENCOUNTER 2025-05-02 15:01 | Outpatient (AMB) | payer OTHER, SELFPAY ==
[2025-05-02 15:21] VITALS: BP 100/66; TEMP 36.3; BMI 28.5
--- NOTE | 2025-05-02 15:21 | A.OFFPC_ITS ---
Vital Signs 3 05/02/25 15:21 Height 5 ft 3 in Weight 161 lb BMI 28.5 BP 100/66 Blood Pressure Location Lt brachial Position Sitting Pulse Source Pulse Oximeter Temp 97.3 F Temp Source Temporal Artery Scan Oxygen Delivery Method Room Air Intake Visit Reasons: [facility] 04/24 Boilermaker Mechanic Required: No Accompanied by: Self / Same As Patient Allergies No Known Allergies Allergy (Verified 05/02/25 15:22) Tobacco use date assessed: 05/02/25 Dental Screening Dental Screen Date: 05/02/25 Did you have a dental visit in the last 12 months?: Yes Did you have a dental problem in the last 6 months where you did not have access to dental care?: No Was dental information given to patient?: Patient has dentist HPI HPI Comments 2 History of Present Illness0 Details 30 y/o Female patient who presents to [facility] today for HDF. Pt was admitted at [facility] (? Mental health medication clinic) for unknown time period. Pt does not want to discuss this admission further. Pt asking for a referral to Voting Machine Repairer - due vision changes. Advised Pt that she does not need referral, she can self schedule. Pt has disfigurement of right Ear, asking to be referred for repair. [facility] Medical History (Updated 05/02/25 @ 17:59 by Angela Antonio NP) Torn earlobe Overweight (BMI 25.0-29.9) Vitamin D deficiency Depressed Surgical History History of excision of pilonidal cyst (~2014) Family History Sister Migraine Maternal Grandmother Diabetes mellitus Thyroid disease Paternal Grandmother Breast cancer Paternal Grandfather Stomach cancer Social History Housing: Apartment Alcohol intake: current Alcohol intake frequency: holidays/special occasions only Patient Tobacco Use Status: Never used Tobacco e-Cigarette/Vaping Use: Currently Using service: No Current occupational status: employed Gender identity: Female Cognitive needs: No Hearing needs: No Vision needs: No Questionnaire PHQ-9 Over the last 2 weeks, how often have you been bothered by any of the following problems? 1. Little interest or pleasure in doing things: nearly every day 2. Feeling down, depressed, or hopeless: not at all 3. Trouble falling or staying asleep, or sleeping too much: not at all 4. Feeling tired or having little energy: not at all 5. Poor appetite or overeating: not at all 6. Feeling bad about yourself - or that you are a failure or have let yourself or your family down: not at all 7. Trouble concentrating on things, such as reading the newspaper or watching television: not at all 8. Moving or speaking so slowly that other people could have noticed. Or the opposite - being so fidgety or restless that you have been moving around a lot more than usual: not at all 9. Thoughts that you would be better off or of hurting yourself in some way: not at all Total score: 3 Source: Developed by Drs. Filippo Worrell, Elza Valero, Hany Matthews and colleagues, with an educational barbara from [employer]. Thrive Questionnaire Date Thrive assessed: 05/22/24 I am a: Patient What is your living situation today?: I have a steady place to live Within the past 12 months, did the food you bought not last and you didn't have the money to get more?: Never true Within the past 12 months, did you worry whether your food would run out before you got money to buy more?: Never true Do you have trouble paying for medicines?: No Do you have trouble getting transportation to medical appointments?: No Do you have trouble paying your heating and electricity bill?: No Do you have trouble taking care of your child, family member or friend?: No Do you have trouble with day-to-day activities such as bathing, preparing meals, shopping, managing finances, etc.?: No Are you currently unemployed and looking for a job?: Yes Are you interested in more education?: Yes Please select the resources that you would like help with: Housing/Assisted, Transportation and Job search/training Currently or been in a relationship where the following occur: No concerns reported THRIVE Score: 0 AUDIT C Alcohol Use Questionnaire (AUDIT-C) 1. How often do you have a drink containing alcohol?: Never Total Score: 0 SARAH-7 AMB Questionnaire SARAH-7 Date SARAH - 7 assessed: 05/22/24 Feeling nervous, anxious, or on edge: 0 = Not at all Not being able to stop or control worryin = Not at all Worrying too much about different things: 0 = Not at all Trouble relaxin = Not at all Being so restless that it is hard to sit still: 0 = Not at all Becoming easily annoyed or irritable: 0 = Not at all Feeling afraid as if something awful might happen: 0 = Not at all Total SARAH-7 score (0-4 normal; 5-9 mild; 10-14 moderate; 15-21 severe): 0 Source: Developed by Drs. Filippo Worrell, Elza Valero, Hany Matthews and colleagues, with an educational barbara from [employer]. Review of Systems Const All systems reviewed & are unremarkable except as noted in HPI and below Physical exam (Primary Care) Vital Signs: Last Vital Signs Temp 97.3 F 05/02/25 15:21 BP 100/66 05/02/25 15:21 Oxygen Delivery Method Room Air 05/02/25 15:21 BMI result Body Mass Index 28.5 Tobacco/Smoking Status: Tobacco use Status Tobacco use date assessed 05/02/25 05/02/25 15:25 Patient Tobacco Use Status Never used Tobacco 05/02/25 15:25 e-Cigarette/Vaping Use Currently Using 05/02/25 15:25 PHQ-9: PHQ-9 Score PHQ-9: Total score 3 05/02/25 16:05 Thrive Assessment: Date of Thrive Assessment Date Thrive assessed 05/22/24 05/02/25 15:25 Currently or been in a relationship where the following occur: No concerns reported Const General: no acute distress and patient obtunded Nutritional Appearance: well nourished Orientation/consciousness: patient oriented x3 and patient obtunded HENMT Outer ear/TM images: 2 1. Torn earlobe from piercing Neuro General: patient oriented x3, gait normal, moves all extremities and patient obtunded Psych Speech and movement: Clear speech present Affect: Anxious affect present and Irritable affect present Attitude: Refuses to answer (attititude/behavior) Coding Level of Care Code Est Pt Level 4 (75322) Diagnoses Schizoaffective disorder, bipolar type F25.0 Tear of right earlobe, initial encounter S01.311A Encounter type: initial encounter Laterality: right Time Spent (min) 20 Assessment & Plan Assessment & Plan (1) Schizoaffective disorder, bipolar type: Code(s): F25.0 - Schizoaffective disorder, bipolar type Category: Medical Plan: Managed by Psych (2) Torn earlobe: Code(s): S01.319A - Laceration without foreign body of unspecified ear, initial encounter Category: Medical Qualifiers: Encounter type: initial encounter Laterality: right Qualified Code(s): S01.311A - Laceration without foreign body of right ear, initial encounter Plan: Referral to Plastic surgery placed. Orders: Referrals 2 Plastic Surgery Referral S01.311A - Laceration without foreign body of right ear, initial encounter
== END 2025-05-02 16:25 | disposition home or self-care (01) ==
LOC: HO.HMCH 15:02
PROVIDERS: PCP Internal Medicine; Visit Provider Nurse Practitioner Family
DX: F25.0 Schizoaffective disorder, bipolar type (principal); S01.311A Laceration without foreign body of right ear, initial encounter

== ENCOUNTER → 2025-05-02 15:01 | Outpatient (BNVA) | payer OTHER, SELFPAY | PROVIDERS: PCP Internal Medicine; Visit Provider Nurse Practitioner Family | DX: S01.311A Laceration without foreign body of right ear, initial encounter (principal); F25.0 Schizoaffective disorder, bipolar type; X58.XXXA Exposure to other specified factors, initial encounter; Y93.9 Activity, unspecified; Y92.9 Unspecified place or not applicable; Y99.9 Unspecified external cause status | CPT/HCPCS: 99212 ==

== ENCOUNTER 2025-07-07 14:10 | Outpatient (AMB) | payer OTHER, SELFPAY ==
[2025-07-07 14:12] VITALS: BP 126/82; PULSE 57; O2SAT 98; BMI 30.2
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
--- OUTSIDE RECORDS SUMMARY | 2025-07-07 14:55 | XMS_ITS | Clinical Summary ---
Author Organization [facility] Address [address] [place] [address] Phone Care Team Providers Care Senior Water Resources Engineer Name Role Phone Physician, Pcp Unknown Primary Care Provider Lindsey vailable Allergies No known active allergies Encounters Date Type Department Care Team Description 04/07/2025 4:09 PM EDT - 04/08/2025 2:35 PM EDT Emergency [facility] Emergency [address] [place] [address] Eulalio Guerrier MD Cauchon, Matthew C, DO Goebel, Mathew, MD Emotional distress (Primary Dx) Discharge Disposition: [facility] from Last 3 Months Medical History Medical History Date Comments Schizophrenia ([facility] V24, [facility] V28) DX:Schizophrenia ([facility]) Depression DX:Depression Maternal varicella, non-immune D X:Maternal varicella, non-immune Social History Tobacco Use Types Packs/Day Years Used Date Smoking Tobacco: Never Smokeless Tobacco: Never Tobacco Cessation:Counseling Given: Not Answered Alcohol Use Standard Drinks/Week Comments Never 0 (1 standard drink = 0.6 oz pur e alcohol) Comments Unknown Sex and Gender Information Value Date Recorded Sex Assigned at Not on file Legal Sex Female 12:34 AM EST Gender Identity Not on file Sexual Orientation Not on file Obstetrics History Last Filed Vital Signs Vital Sign Reading Time Taken Comments Blood Pressure 131/82 04/08/2025 1:04 PM EDT Pulse 98 04/08/2025 1:50 PM EDT Temperature 36.7 C (98.1 F) 04/08/2025 1:04 PM EDT Respiratory Rate 18 04/08/2025 1:04 PM EDT Oxygen Saturation 100% 04/08/2025 1:04 PM EDT Inhaled Oxygen Concentration - - Weight 63.5 kg (140 lb) 04/07/2025 4:31 PM EDT Height 162.6 cm (5' 4 ) 04/07/2025 4:31 PM EDT Body Mass Index 24.03 04/07/2025 4:31 PM EDT Plan of Treatment Health Maintenance Due Date Last Done Comments Hepatitis B Vaccines (1 of 3 - 19+ 3-dose series) 2013 Cervical Cancer Screening: P ap Smear 2015 HIV Screening 10/23/2022 Hepatitis C Screening 10/23/2022 Social Influencers of Health Screening 10/23/2022 COVID-19 Vaccine (2 - 2023-2 5 season) 2024 07/07/2021 Depression Screening 11/20/2024 Influenza Vaccine (#1) 2025 12/04/2018 DTaP,Tdap,and Td Vaccines (3 - Td or Tdap) 09/22/2029 09/22/2019, 06/22/2017 Pneumococcal Vaccine: Pediatrics (0 to 5 Years) and At-Risk Patients (6 to 49 Years) Aged Out 06/11/2019 No longer eligible b ased on patient's age to complete this topic HIB Vaccines Aged Out No longer eligi ble based on patient's age to complete this topic HPV Vaccines Aged Out No longer eligi ble based on patient's age to complete this topic Hepatitis A Vaccines Aged Out No long er eligible based on patient's age to complete this topic IPV Vaccines Aged Out No longer eligi ble based on patient's age to complete this topic MMR Vaccines Aged Out No longer eligi ble based on patient's age to complete this topic Meningococcal ACWY Vaccine Aged Out N o longer eligible based on patient's age to complete this topic Meningococcal B Vaccine Aged Out No l onger eligible based on patient's age to complete this topic RSV Immunization Patients Under 20 months Aged Out No longer eligible b ased on patient's age to complete this topic Varicella Vaccines Aged Out No longer eligible based on patient's age to complete this topic Procedures Procedure Name Priority Date/Time Associated Diagnosis Comments ECG ANNOTATED 04/09/2025 POC , URINE DIAGNOSTIC STAT 04/08/2025 6:02 AM EDT METHADONE SCREEN, URINE STAT 04/08/2025 5:20 AM EDT PHENCYCLIDINE, URINE STAT 04/08/2025 5:20 AM EDT BUPRENORPHINE SCREEN, URINE STAT 04/08/2025 5:20 AM EDT DRUG ABUSE SCREEN 8A PANEL, URINE STAT 04/08/2025 5:20 AM EDT ECG 12-LEAD STAT 04/07/2025 8:17 PM EDT CBC WITH AUTO DIFFERENTIAL STAT 04/07/2025 5:51 PM EDT SALICYLATE LEVEL STAT 04/07/2025 5:51 PM EDT ACETAMINOPHEN LEVEL STAT 04/07/2025 5 :51 PM EDT ETHANOL STAT 04/07/2025 5:51 PM EDT COMPREHENSIVE METABOLIC PANEL STAT 04/07/2025 5:51 PM EDT CBC AND DIFFERENTIAL STAT 04/07/2025 5:51 PM EDT from Last 3 Months Results * ECG-Annotated (04/09/2025) us Provider Onbase MD ECG ORDERABLES Final Result * POC , urine manually resulted (04/08/2025 6:02 AM EDT) HCG, Ur POC Negative Negative POC hCG Int QC Pass? Yes Yes Urine Urine specimen obtained by clean catch procedure / Unknown 04/08/2025 6:02 AM EDT Jackie KHAN POINT OF CARE TEST ENTER/EDIT O RDERABLES Final Result * (ABNORMAL) Drug abuse screen 8a panel, urine (04/08/2025 5:20 AM EDT) Amphetamine Screen, Ur Negative Negative LAB CHEMISTRY METHOD 5 6:18 AM [facility] Comment:Certain OTC medicati ons containing ephedrine, phenylephrine, pseudoephedrine and phenylpropanolamine can cause false positive results. Barbiturate Screen, Ur Negative Negative LAB CHEMISTRY METHOD 5 6:18 AM [facility] Benzodiazepine Screen, Ur Negative Negative LAB CHEMISTRY METHOD 5 6:18 AM [facility] Cocaine Screen, Ur Negative Negative LAB CHEMISTRY METHOD 5 6:18 AM [facility] Opiate Screen, Ur Negative Negative LAB CHEMISTRY METHOD 5 6:18 AM [facility] Cannabinoid (THC) Screen, Ur Positive(A ) Negative LAB CHEMISTRY METHOD 5 6:18 AM [facility] Comment:Specimens from patie nts taking pantoprazole sodium (Protonix) have been shown to produce false positive results. Oxycodone Screen, Ur Negative Negative LAB CHEMISTRY METHOD 5 6:18 AM [facility] Fentanyl, Ur Negative Negative LAB CHEMISTRY METHOD 5 6:18 AM [facility] Urine Urine specimen obtained by clean catch procedure / Unknown Non-blood Collection / Unknown 04/08/2025 5:20 AM EDT 04/08/2025 5:54 AM [facility] - 04/08/2025 6:18 AM EDT Assay cutoffs: Amphetamines 1000 ng/mL Barbiturates 200 ng/mL Benzodiazepines 200 ng/mL Cocaine 300 ng/mL Fentanyl 1 ng/mL Opiates 300 ng/mL Oxycodone 100 ng/mL THC 50 ng/mL Semi-quantitative assay for screening purposes only. Unconfirmed screening result should not be used for non-medical purposes. *ALTERNATE METHOD CONFIRMATION DONE UPON REQUEST ONLY* Eulalio Guerrier MD LAB URINE ORDERABLES Final Result Performing Organization Address City/[facility]/ZIP Co de Phone Number [facility] [address] [place] [address], [place] [phone] * Buprenorphine screen, urine (04/08/2025 5:20 AM EDT) Buprenorphine Screen Urine Negative Negative LAB CHEMISTRY METHOD 04/08/2025 6:18 AM EDT [facility] Urine Urine specimen obtained by clean catch procedure / Unknown Non-blood Collection / Unknown 04/08/2025 5:20 AM EDT 04/08/2025 5:54 AM EDT Narrative [facility] - 04/08/2025 6:18 AM EDT Assay cutoff 5 ng/mL Semi-quantitative assay for screening purposes only. Unconfirmed screening result should not be used for non-medical purposes. *ALTERNATE METHOD CONFIRMATION DONE UPON REQUEST ONLY* Eulalio Guerrier MD LAB URINE ORDERABLES Final Result Performing Organization Address [facility] Co de Phone Number [facility] [address] [place] [address], [place] [phone] * Methadone, urine (04/08/2025 5:20 AM EDT) Pathologist [facility] Methadone Screen, Urine Negative Negative LAB CHEMISTRY METHOD 04/08/2025 6:18 AM EDT [facility] Comment: Assay cutoff 300 ng/mL Semi-quantitative assay for screening purposes only. Unconfirmed screening result should not be used for non-medical purposes. *ALTERNATE METHOD CONFIRMATION DONE UPON REQUEST ONLY* Urine Urine specimen obtained by clean catch procedure / Unknown Non-blood Collection / Unknown 04/08/2025 5:20 AM EDT 04/08/2025 5:54 AM EDT Eulalio Guerrier MD LAB URINE ORDERABLES Final Result [facility] [address] [place] [address], [place] [phone] * Phencyclidine, urine (04/08/2025 5:20 AM EDT) PCP Scrn, Ur Negative Negative LAB CHEMISTRY METHOD 04/08/2025 6:18 AM EDT [facility] Comment: Assay cutoff 25 ng/mL Semi-quantitative assay for screening purposes only. Unconfirmed screening result should not be used for non-medical purposes. *ALTERNATE METHOD CONFIRMATION DONE UPON REQUEST ONLY* Urine Urine specimen obtained by clean catch procedure / Unknown Non-blood Collection / Unknown 04/08/2025 5:20 AM EDT 04/08/2025 5:54 AM EDT Eulalio Guerrier MD LAB URINE ORDERABLES Final Result Performing Organization Address [facility] de Phone Number [facility] [address] [place] [address], [place] [phone] * ECG 12 lead (04/07/2025 8:17 PM EDT) [facility] Ventricular Rate ECG 66 BPM GEMUSE Atrial Rate 66 BPM GEMUSE P-R Interval 108 ms GEMUSE QRS Duration 78 ms GEMUSE Q-T Interval 420 ms GEMUSE QTc 440 ms GEMUSE P Wave [place] 58 degrees GEMUSE R [place] 52 degrees GEMUSE T [place] 19 degrees GEMUSE ECG Interpretation Sinus rhythm with short RI Otherwise normal ECG When compared with ECG of 30-NOV-2018 20:47, T wave inversion now evident in Inferior leads Confirmed by Santiago RUSSELL JAMES ([id number]) on 04/08/2025 6:12:31 AM GEMUSE 04/07/2025 8:17 PM EDT 04/08/2025 6:12 AM EDT Eulalio Guerrier MD ECG ORDERABLES Final Resul t Performing Organization Address City/[facility] Co de Phone Number GEMUSE * (ABNORMAL) CBC auto differential (04/07/2025 5:51 PM EDT) [facility] WBC 11.6(H) 4.8 - 10.8 K/mcL LAB HEMETOLOGY METHOD 04/07/2025 6:22 PM EDT [facility] RBC 4.00 3.80 - 4.80 M/mcL LAB HEMETOLOGY METHOD 04/07/2025 6:22 PM EDT [facility] Hemoglobin 13.0 11.5 - 16.0 g/dL LAB HEMETOLOGY METHOD 04/07[facility]2025 6:[facility] Hematocrit 38.9 35.0 - 47.0 % LAB HEMETOLOGY METHOD 04/07/2025 6:22 PM [facility] MCV 96.8 79.0 - 98.0 FL LAB HEMETOLOGY METHOD 04/07/2025 6:22 PM [facility] MCH 32.3(H) 27.0 - 32.0 pcg LAB HEMETOLOGY METHOD 04/07/2025 6:22 PM [facility] MCHC 33.4 32.0 - 37.0 g/dL LAB HEMETOLOGY METHOD 04/07/2025 6:22 PM [facility] RDW 12.7 11.0 - 15.0 % LAB HEMETOLOGY METHOD 04/07/2025 6:22 PM EDT [facility] Platelets 228 130 - 400 K/mcL LAB HEMETOLOGY METHOD 04/07/2025 6:22 PM [facility] MPV 10.0 7.0 - 11.0 FL LAB HEMETOLOGY METHOD 04/07/2025 6:22 PM [facility] NRBC 0.0 <1.0 % LAB HEMETOLOGY METHOD 04/07/2025 6:22 PM EDT [facility] NRBC Absolute 0.00 <0.10 K/mcL LAB HEMETOLOGY METHOD 04/07/2025 6:22 PM [facility] Neutrophils Relative 74.3 % LAB HEMETOLOGY METHOD 04/07/2025 6:22 PM [facility] Lymphocytes Relative 18.2 % LAB HEMETOLOGY METHOD 04/07/2025 6:22 PM [facility] Monocytes Relative 6.7 % LAB HEMETOLOGY METHOD 04/07/2025 6:22 PM [facility] Eosinophils Relative 0.3 % LAB HEMETOLOGY METHOD 04/07/2025 6:22 PM [facility] Basophils Relative 0.2 % LAB HEMETOLOGY METHOD 04/07/2025 6:22 PM [facility] Immature Granulocytes Relative 0.3 % LAB HEMETOLOGY METHOD 04/07/2025 6:22 PM [facility] Neutrophils Absolute 8.59(H) 1.50 - 7.00 K/mcL LAB HEMETOLOGY METHOD 04/07/2025 6:22 PM [facility] Lymphocytes Absolute 2.10 1.00 - 5.00 K/mcL LAB HEMETOLOGY METHOD 04/07/2025 6:22 PM [facility] Monocytes Absolute 0.78 0.20 - 1.00 K/mcL LAB HEMETOLOGY METHOD 04/07/2025 6:22 PM [facility] Eosinophils Absolute 0.04 0.00 - 0.50 K/mcL LAB HEMETOLOGY METHOD 04/07/2025 6:22 PM [facility] Basophils Absolute 0.02 0.00 - 0.20 K/mcL LAB HEMETOLOGY METHOD 04/07/2025 6:22 PM [facility] Immature Granulocytes Absolute 0.04(H) 0.00 - 0.03 K/mcL LAB HEMETOLOGY METHOD 04/07/2025 6:22 PM EDT [facility] Blood Venous blood specimen / Unknown Venipuncture / Unknown 04/07/2025 5:51 PM EDT 04/07/2025 6:13 PM EDT Eulalio Guerrier MD LAB BLOOD ORDERABLES Final Result Performing Organization Address [facility]/ZIP Co de Phone Number [facility] [address] [place] [address], [place] [phone] * Ethanol (04/07/2025 5:51 PM EDT) Ethanol Level 4 0 - 10 mg/dL LAB CHEMISTRY METHOD 04/07/2025 6:46 PM EDT [facility] Blood Venous blood specimen / Unknown Venipuncture / Unknown 04/07/2025 5:51 PM EDT 04/07/2025 6:13 PM EDT Eulalio Guerrier MD LAB BLOOD ORDERABLES Final Result Performing Organization Address [facility] Co de Phone Number [facility] [address] [place] [address], [place] [phone] * (ABNORMAL) Acetaminophen level (04/07/2025 5:51 PM EDT) Acetaminophen Level <2.0(L) 10.0 - 30.0 mcg/mL LAB CHEMISTRY METHOD 04/07/2025 6:47 PM EDT [facility] Blood Venous blood specimen / Unknown Venipuncture / Unknown 04/07/2025 5:51 PM EDT 04/07/2025 6:13 PM EDT Eulalio Guerrier MD LAB BLOOD ORDERABLES Final Result Performing Organization Address City/[facility]/ZIP Co de Phone Number [facility] [address] [place] [address], [place] [phone] * Salicylate level (04/07/2025 5:51 PM EDT) Salicylate Level 3.1 2.0 - 29.0 mg/dL LAB CHEMISTRY METHOD 04/07/2025 6:46 PM EDT [facility] Blood Venous blood specimen / Unknown Venipuncture / Unknown 04/07/2025 5:51 PM EDT 04/07/2025 6:13 PM EDT us Eulalio Guerrier MD LAB BLOOD ORDERABLES Final Result [facility] [address] [place] [address], [place] [phone] * (ABNORMAL) Comprehensive metabolic panel (04/07/2025 5:51 PM EDT) Pathologist [facility] Sodium 138 133 - 145 mmol/L LAB CHEMISTRY METHOD 04/07/2025 6:46 PM EDT [facility] Potassium 3.2(L) 3.5 - 5.5 mmol/L LAB CHEMISTRY METHOD 04/07/2025 6:46 PM [facility] Chloride 106 96 - 110 mmol/L LAB CHEMISTRY METHOD 04/07/2025 6:46 PM [facility] CO2 22 21 - 32 mmol/L LAB CHEMISTRY METHOD 04/07/2025 6:46 PM EDT [facility] Anion Gap 10 3 - 11 LAB CHEMISTRY METHOD 04/07/2025 6:46 PM [facility] Glucose 73 70 - 100 mg/dL LAB CHEMISTRY METHOD 04/07/2025 6:46 PM [facility] BUN 9 5 - 25 mg/dL LAB CHEMISTRY METHOD 04/07/2025 6:46 PM [facility] Creatinine 0.60 0.50 - 1.10 mg/dL LAB CHEMISTRY METHOD 04/07/2025 6:46 PM EDT [facility] eGFR 123 >=60 mL/min/1. 73m2 LAB CHEMISTRY METHOD 04/07/2025 6:46 PM T [facility] Comment:Calculation based on the Chronic Kidney Disease Epidemiology Collaboration (CKD-EPI) equation refit without adjustment for race. BUN/Creatinine Ratio 15.0 LAB CHEMISTRY METHOD 04/07/2025 6:46 PM T [facility] Calcium 8.9 8.5 - 10.5 mg/dL LAB CHEMISTRY METHOD 04/07/2025 6:46 PM [facility] AST (SGOT) 16 10 - 42 unit/L LAB CHEMISTRY METHOD 04/07/2025 6:46 PM [facility] ALT (SGPT) 17 10 - 60 unit/L LAB CHEMISTRY METHOD 04/07/2025 6:46 PM [facility] Alkaline Phosphatase 63 42 - 121 unit/L LAB CHEMISTRY METHOD 04/07/2025 6:46 PM EDT [facility] Total Protein 7.1 6.0 - 8.0 g/dL LAB CHEMISTRY METHOD 04/07/2025 6:46 PM [facility] Albumin 3.9 3.2 - 5.0 g/dL LAB CHEMISTRY METHOD 04/07/2025 6:46 PM [facility] Total Bilirubin 0.7 0.0 - 1.4 mg/dL LAB CHEMISTRY METHOD 04/07/2025 6:46 PM T [facility] Blood Venous blood specimen / Unknown Venipuncture / Unknown 04/07/2025 5:51 PM EDT 04/07/2025 6:13 PM EDT us Eulalio Guerrier MD LAB BLOOD ORDERABLES Final Result [facility] [address] [place] [address], [place] [phone] from Last 3 Months Insurance [address] [place] [id number] [facility] Care Teams Senior Water Resources Engineer Relationship Specialty Start Date End Date Physician, Pcp Unknown PCP - General 04/07/25
== END 2025-07-07 14:50 | disposition home or self-care (01) ==
LOC: HO.HMCH 14:10
PROVIDERS: PCP Internal Medicine; Visit Provider Internal Medicine
DX: E55.9 Vitamin D deficiency, unspecified (principal); H54.7 Unspecified visual loss; F43.10 Post-traumatic stress disorder, unspecified; F25.0 Schizoaffective disorder, bipolar type; E66.9 Obesity, unspecified

== ENCOUNTER → 2025-07-07 14:10 | Outpatient (BNVA) | payer OTHER, SELFPAY | PROVIDERS: PCP Internal Medicine; Visit Provider Internal Medicine | DX: F25.0 Schizoaffective disorder, bipolar type (principal); F43.10 Post-traumatic stress disorder, unspecified; H54.7 Unspecified visual loss; E55.9 Vitamin D deficiency, unspecified; E66.9 Obesity, unspecified; Z68.30 Body mass index [BMI] 30.0-30.9, adult | CPT/HCPCS: 96127; 99212 ==

== ENCOUNTER 2025-07-08 10:10 | Outpatient (REF) | payer OTHER, SELFPAY ==
[2025-07-08 10:37] LABS: MANUAL DIFF FLAG NO
[2025-07-08 10:50] LABS: Hematocrit 43.7 % (37.0-47.0); Hemoglobin 14.3 g/dl (12.0-16.0); Imm Gran Abs Auto 0.01 X10*3/uL (0.00-0.03); Imm Gran Pct Auto 0.1 % (0.0-0.4); Lymphocytes Absolute Auto 3.0 X10*3/uL (1.2-4.9); Mean Corpuscular HGB Conc 32.7 g/dl (31.0-35.0); Mean Corpuscular Hemoglobin 33.2 pg (27.0-33.0); Mean Corpuscular Volume 101.4 fL (80.0-98.0); NRBC Abs Auto 0.000 X10*3/uL (0.0-0.012); NRBC Pct Auto 0.0 /100WBC (0.0-0.2); Platelet Count 270 X10*3/uL (160-400); Red Blood Count 4.31 X10*6/uL (4.20-5.50); White Blood Count 7.7 X10*3/uL (4.8-10.8)
[2025-07-08 11:20] LABS: Appearance Urine Clear; Glucose Urine UA Negative (Negative); PH 7.0 (5.0-9.0); Specific Gravity - Urine 1.015 (1.005-1.025); UMIC TRIGGER UACC YES
[2025-07-08 11:24] LABS: UACC Culture Trigger YES
--- OUTSIDE RECORDS SUMMARY | 2025-07-08 11:26 | XMS_ITS | Clinical Summary ---
Author Organization [facility] Address [address] [place] [address] Phone Care Team Providers Care Teacher Lip Reading Name Role Phone Physician, Pcp Unknown Primary Care Provider Lindsey vailable Allergies No known active allergies Encounters Date Type Department Care Team Description 04/07/2025 4:09 PM EDT - 04/08/2025 2:35 PM EDT Emergency [facility] Emergency [address] [place] [address] Eulalio Guerrier MD Cauchon, Matthew C, DO Goebel, Mathew, MD Emotional distress (Primary Dx) [facility]charge Disposition[facility] from Last 3 Months Medical History Medical History Date Comments Schizophrenia ([facility] V24, [facility] V28) DX:Schizophrenia ([facility]) Depression DX:Depression Maternal varicella, non-immune [...] Negative LAB CHEMISTRY METHOD 5 6:[address] [facility] Comment:Certain OTC medicati ons containing ephedrine, phenylephrine, pseudoephedrine and phenylpropanolamine can cause false positive results. Barbiturate Screen, Ur Negative Negative LAB CHEMISTRY METHOD 5 6:[address] [facility] Benzodiazepine Screen, Ur Negative Negative LAB CHEMISTRY METHOD 5 6:[address] [facility] Cocaine Screen, Ur Negative Negative LAB CHEMISTRY METHOD 5 6:[address] [facility] Opiate Screen, Ur Negative Negative LAB CHEMISTRY METHOD 5 6:[address] [facility] Cannabinoid (THC) Screen, Ur Positive(A ) Negative LAB CHEMISTRY METHOD 5 6:[address] [facility] Comment:Specimens from patie nts taking pantoprazole sodium (Protonix) have been shown to produce false positive results. Oxycodone Screen, Ur Negative Negative LAB CHEMISTRY METHOD 5 6:[address] [facility] Fentanyl, Ur Negative Negative LAB CHEMISTRY METHOD 5 6:[address] [facility] Urine Urine specimen obtained by clean catch procedure / Unknown Non-blood Collection / Unknown 04/08/2025 5:20 AM EDT 04/08/2025 5:54 AM [facility] - 04/08/2025 6:18 AM EDT [...] URINE ORDERABLES Final Result Performing Organization Address City/[facility]/ZIP Co de Phone Number [facility] [address] [place] [address], [place] [phone] * Buprenorphine screen, urine (04/08/2025 5:20 AM EDT) Buprenorphine Screen Urine Negative Negative LAB CHEMISTRY METHOD 04/08/2025 6:18 AM EDT [facility] Urine Urine specimen obtained by clean catch procedure / Unknown Non-blood Collection / Unknown 04/08/2025 5:20 AM EDT 04/08/2025 5:54 AM EDT Narrative [facility] - 04/08/2025 6:18 AM EDT Assay cutoff 5 ng/mL Semi-quantitative assay for screening purposes only. Unconfirmed screening result should not be used for non-medical purposes. *ALTERNATE METHOD CONFIRMATION DONE UPON REQUEST ONLY* Eulalio Guerrier MD LAB URINE ORDERABLES Final Result Performing Organization Address [facility] Co de Phone Number [facility] [address] [place] [address], [place] [phone] * Methadone, urine (04/08/2025 5:20 AM EDT) Pathologist [facility] Methadone Screen, Urine Negative Negative LAB CHEMISTRY METHOD 04/08/2025 6:18 AM EDT [facility] Comment: Assay cutoff 300 ng/mL Semi-quantitative assay for screening purposes only. Unconfirmed screening result should not be used for non-medical purposes. *ALTERNATE METHOD CONFIRMATION DONE UPON REQUEST ONLY* Urine Urine specimen obtained by clean catch procedure / Unknown Non-blood Collection / Unknown 04/08/2025 5:20 AM EDT 04/08/2025 5:54 AM EDT Eulalio Guerrier MD LAB URINE ORDERABLES Final Result [facility] [address] [place] [address], [place] [phone] * Phencyclidine, urine (04/08/2025 5:20 AM EDT) PCP Scrn, Ur Negative Negative LAB CHEMISTRY METHOD 04/08/2025 6:18 AM EDT [facility] Comment: Assay cutoff 25 ng/mL Semi-quantitative assay for screening purposes only. Unconfirmed screening result should not be used for non-medical purposes. *ALTERNATE METHOD CONFIRMATION DONE UPON REQUEST ONLY* Urine Urine specimen obtained by clean catch procedure / Unknown Non-blood Collection / Unknown 04/08/2025 5:20 AM EDT 04/08/2025 5:54 AM EDT Eulalio Guerrier MD LAB URINE ORDERABLES Final Result Performing Organization Address [facility] de Phone Number [facility] [address] [place] [address], [place] [phone] * ECG 12 lead (04/07/2025 8:17 PM EDT) [facility] Ventricular Rate ECG 66 BPM [facility] Atrial Rate 66 BPM [facility] P-R Interval 108 ms [facility] QRS Duration 78 ms [facility] Q-T Interval 420 ms [facility] QTc 440 ms GEM[facility] P Wave Fisher 58 degrees GEMUSE R Fisher 52 degrees GEMUSE T Fisher 19 degrees GEMUSE ECG Interpretation Sinus rhythm with short [place] Otherwise normal ECG When compared with ECG of 30-NOV-2018 20:47, T wave inversion now evident in Inferior leads Confirmed by Santiago RUSSELL JAMES ([id number]) on 04/08/2025 6:12:31 AM [facility] 04/07/2025 8:17 PM EDT 04/08/2025 6:12 AM EDT Eulalio Guerrier MD ECG ORDERABLES Final Resul t Performing Organization Address City/[facility] Co de Phone Number [facility] * (ABNORMAL) CBC auto differential (04/07/2025 5:51 PM EDT) [facility] WBC 11.6(H) 4.8 - 10.8 K/mcL LAB HEMETOLOGY METHOD 04/07/2025 6:22 PM EDT [facility] RBC 4.00 3.80 - 4.80 M/mcL LAB HEMETOLOGY METHOD 04/07/2025 6:22 PM EDT [facility] Hemoglobin 13.0 11.5 - 16.0 g/dL LAB HEMETOLOGY METHOD 04/07[facility]2025 [facility] Hematocrit 38.9 35.0 - 47.0 % LAB HEMETOLOGY METHOD 04/07/2025 6:[facility] MCV 96.8 79.0 - 98.0 FL LAB HEMETOLOGY METHOD 04/07/2025 6:22 [facility] MCH 32.3(H) 27.0 - 32.0 pcg LAB HEMETOLOGY METHOD 04/07/2025 6:[facility] MCHC 33.4 32.0 - 37.0 g/dL LAB HEMETOLOGY METHOD 04/07/2025 6:[address] [facility] RDW 12.7 11.0 - 15.0 % LAB HEMETOLOGY METHOD 04/07/2025 6:22 PM EDT [facility] Platelets 228 130 - 400 K/mcL LAB HEMETOLOGY METHOD 04/07/2025 6:22 [facility] MPV 10.0 7.0 - 11.0 FL LAB HEMETOLOGY METHOD 04/07/2025 6:22 [facility] NRBC 0.0 <1.0 % LAB HEMETOLOGY METHOD 04/07/2025 6:22 PM EDT [facility] NRBC Absolute 0.00 <0.10 K/mcL LAB HEMETOLOGY METHOD 04/07/2025 6:[address] [facility] Neutrophils Relative 74.3 % LAB HEMETOLOGY METHOD 04/07/2025 6:[address] [facility] Lymphocytes Relative 18.2 % LAB HEMETOLOGY METHOD 04/07/2025 6:[address] [facility] Monocytes Relative 6.7 % LAB HEMETOLOGY METHOD 04/07/2025 6:[address] [facility] Eosinophils Relative 0.3 % LAB HEMETOLOGY METHOD 04/07/2025 6:[address] [facility] Basophils Relative 0.2 % LAB HEMETOLOGY METHOD 04/07/2025 6:[address] [facility] Immature Granulocytes Relative 0.3 % LAB HEMETOLOGY METHOD 04/07/2025 6:[address] [facility] Neutrophils Absolute 8.59(H) 1.50 - 7.00 K/mcL LAB HEMETOLOGY METHOD 04/07/2025 6:[address] [facility] Lymphocytes Absolute 2.10 1.00 - 5.00 K/mcL LAB HEMETOLOGY METHOD 04/07/2025 6:[address] [facility] Monocytes Absolute 0.78 0.20 - 1.00 K/mcL LAB HEMETOLOGY METHOD 04/07/2025 6:[address] [facility] Eosinophils Absolute 0.04 0.00 - 0.50 K/mcL LAB HEMETOLOGY METHOD 04/07/2025 6:[address] [facility] Basophils Absolute 0.02 0.00 - 0.20 K/mcL LAB HEMETOLOGY METHOD 04/07/2025 6:[address] [facility] Immature Granulocytes Absolute 0.04(H) 0.00 - 0.03 K/mcL LAB HEMETOLOGY METHOD 04/07/2025 6:22 PM EDT [facility] Blood Venous blood specimen / Unknown Venipuncture / Unknown 04/07/2025 5:51 PM EDT 04/07/2025 6:13 PM EDT Eulalio Guerrier MD LAB BLOOD ORDERABLES Final Result Performing Organization Address [facility]/ZIP Co de Phone Number [facility] [address] [place] [address], [place] [phone] * Ethanol (04/07/2025 5:51 PM EDT) Ethanol Level 4 0 - 10 mg/dL LAB CHEMISTRY METHOD 04/07/2025 6:46 PM EDT [facility] Blood Venous blood specimen / Unknown Venipuncture / Unknown 04/07/2025 5:51 PM EDT 04/07/2025 6:13 PM EDT Eulalio Guerrier MD LAB BLOOD ORDERABLES Final Result Performing Organization Address [facility] Co de Phone Number [facility] [address] [place] [address], [place] [phone] * (ABNORMAL) Acetaminophen level (04/07/2025 5:51 PM EDT) Acetaminophen Level <2.0(L) 10.0 - 30.0 mcg/mL LAB CHEMISTRY METHOD 04/07/2025 6:47 PM EDT [facility] Blood Venous blood specimen / Unknown Venipuncture / Unknown 04/07/2025 5:51 PM EDT 04/07/2025 6:13 PM EDT Eulalio Guerrier MD LAB BLOOD ORDERABLES Final Result Performing Organization Address City/[facility]/ZIP Co de Phone Number [facility] [address] [place] [address], [place] [phone] * Salicylate level (04/07/2025 5:51 PM EDT) Salicylate Level 3.1 2.0 - 29.0 mg/dL LAB CHEMISTRY METHOD 04/07/2025 6:46 PM EDT [facility] Blood Venous blood specimen / Unknown Venipuncture / Unknown 04/07/2025 5:51 PM EDT 04/07/2025 6:13 PM EDT us Eulalio Guerrier MD LAB BLOOD ORDERABLES Final Result [facility] [address] [place] [address], [place] [phone] * (ABNORMAL) Comprehensive metabolic panel (04/07/2025 5:51 PM EDT) Pathologist [facility] Sodium 138 133 - 145 mmol/L LAB CHEMISTRY METHOD 04/07/2025 6:46 PM EDT [facility] Potassium 3.2(L) 3.5 - 5.5 mmol/L LAB CHEMISTRY METHOD 04/07/2025 6:[address] [facility] Chloride 106 96 - 110 mmol/L LAB CHEMISTRY METHOD 04/07/2025 6:[address] [facility] CO2 22 21 - 32 mmol/L LAB CHEMISTRY METHOD 04/07/2025 6:46 PM EDT [facility] Anion Gap 10 3 - 11 LAB CHEMISTRY METHOD 04/07/2025 6:[address] [facility] Glucose 73 70 - 100 mg/dL LAB CHEMISTRY METHOD 04/07/2025 6:[address] [facility] BUN 9 5 - 25 mg/dL LAB CHEMISTRY METHOD 04/07/2025 6:[address] [facility] Creatinine 0.60 0.50 - 1.10 mg/dL LAB CHEMISTRY METHOD 04/07/2025 6:46 PM EDT [facility] eGFR 123 >=60 mL/min/1. 73m2 LAB CHEMISTRY METHOD 04/07/2025 6:46 PM T [facility] Comment:Calculation based on the Chronic Kidney Disease Epidemiology Collaboration (CKD-EPI) equation refit without adjustment for race. BUN/Creatinine Ratio 15.0 LAB CHEMISTRY METHOD 04/07/2025 6:46 PM T [facility] Calcium 8.9 8.5 - 10.5 mg/dL LAB CHEMISTRY METHOD 04/07/2025 6:[address] [facility] AST (SGOT) 16 10 - 42 unit/L LAB CHEMISTRY METHOD 04/07/2025 6:[address] [facility] ALT (SGPT) 17 10 - 60 unit/L LAB CHEMISTRY METHOD 04/07/2025 6:[address] [facility] Alkaline Phosphatase 63 42 - 121 unit/L LAB CHEMISTRY METHOD 04/07/2025 6:46 PM EDT [facility] Total Protein 7.1 6.0 - 8.0 g/dL LAB CHEMISTRY METHOD 04/07/2025 6:[address] [facility] Albumin 3.9 3.2 - 5.0 g/dL LAB CHEMISTRY METHOD 04/07/2025 6:[address] [facility] Total Bilirubin 0.7 0.0 - 1.4 mg/dL LAB CHEMISTRY METHOD 04/07/2025 6:46 PM T [facility] Blood Venous blood specimen / Unknown Venipuncture / Unknown 04/07/2025 5:51 PM EDT 04/07/2025 6:13 PM EDT us Eulalio Guerrier MD LAB BLOOD ORDERABLES Final Result [facility] [address] [place] [address], [place] [phone] from Last 3 Months Insurance [address] [place] [id number] [facility] Care Teams Teacher Lip Reading Relationship Specialty Start Date End Date Physician, Pcp Unknown PCP - General 04/07/25
[2025-07-08 11:42] LABS: Alanine Aminotransferase 15 U/L (0-31); Albumin Level 4.8 g/dL (3.5-5.0); Alkaline Phosphatase 55 U/L (39-117); Anion Gap 12 (12-20); Aspartate Amino Transferase 24 U/L (5-31); Blood Urea Nitrogen 10 mg/dL (9-16); Calcium 9.4 mg/dL (8.4-10.2); Carbon Dioxide 25 mmol/L (22-29); Chloride 107 mmol/L (96-108); Cholesterol 178 mg/dL (<200); Estimated Glomerular Filt Rate > 60; Potassium 3.7 mmol/L (3.3-5.1); Sodium 140 mmol/L (135-145); Total Protein 7.4 g/dL (6.5-8.0)
[2025-07-08 11:54] LABS: Syphilis Screen Nonreactive (Nonreactive)
[2025-07-08 11:55] LABS: HBS Num1 0.00 mIU/mL (0-7.99); HBc Num1 0.05 S/CO (0.00-0.79); HBsAGNum1 0.43 S/CO (0.00-0.99); HIV Num 1 0.04 S/CO (0.00-0.99); Hepatitis B Surface Antigen Negative (Negative); ~HepC Num1 0.10 S/CO (0.00-0.79); ~Hepatitis B Surface Antibody NONREACTIVE (Nonreactive); ~Hepatitis C Antibody Nonreactive (Nonreactive)
[2025-07-08 14:13] LABS: CT PCR Urine NOT DETECTED (Not Detect.); NG PCR Urine NOT DETECTED (Not Detect.)
== END 2025-07-08 10:11 | disposition home or self-care (01) ==
LOC: HO.LAB 10:10
PROVIDERS: PCP Internal Medicine; Visit Provider Internal Medicine
DX: Z00.00 Encounter for general adult medical examination without abnormal findings (principal); Z11.59 Encounter for screening for other viral diseases; Z11.3 Encounter for screening for infections with a predominantly sexual mode of transmission; Z11.8 Encounter for screening for other infectious and parasitic diseases; Z11.4 Encounter for screening for human immunodeficiency virus [HIV]; E55.9 Vitamin D deficiency, unspecified; E78.00 Pure hypercholesterolemia, unspecified; D64.9 Anemia, unspecified; N64.52 Nipple discharge; R30.0 Dysuria; Z20.2 Contact with and (suspected) exposure to infections with a predominantly sexual mode of transmission
CPT/HCPCS: 80053; 81001; 81003; 82306; 82465; 84146; 84443; 85025; 86704; 86706; 86780; 86803; 87086; 87340; 87389; 87491; 87591